=== PATIENT | female | born 1975 | race Caucasian/White ===

== ENCOUNTER 2018-06-30 05:19 | Inpatient (IN) ==
[2018-06-30] MEDS ORDERED: MethylPREDNISolone Sod Succinate Inj 125 MG/2 ML Vial IV.PUSH ONE (05:25)
--- NOTE | 2018-06-30 05:30 | ED ---
HPI General Chief complaint: Skin/Abscess/Foreign Body Stated complaint: EVAC/Poss insect bite to face Time Seen by Provider: 06/30/18 05:25 Source: EMS Mode of arrival: EMS Limitations: no limitations History of Present Illness HPI narrative: 43yo F with PMH of nonhodgkin's lymphoma, ex IVDA (have not use for 2 months) here with c/o right facial pain and swelling since yesterday. Said she had a bug bite yesterday and it was getting larger but she went to sleep and woke up and it got worst. Said she has fever at home. Said it is painful, not itchy. Said she has chest pain as well. Denies any sob, n/v, abdominal pain, focal weakness or numbness. Related Data Home Medications Medication Instructions Recorded Confirmed ibuprofen 800 mg PO DIRECTED 06/30/18 06/30/18 levetiracetam [Keppra] 1,000 mg PO BID 06/30/18 06/30/18 Allergies Allergy/AdvReac Type Severity Reaction Status Date / Time penicillin G Allergy Severe Anaphylaxis Verified 06/30/18 05:35 Review of Systems ROS: all other systems reviewed are negative [facility] Medical History Medical History Non-Hodgkin lymphoma (Acute) Seizure (Acute) Surgical History Surgical History H/O tubal ligation (Acute) Hx of cholecystectomy (Acute) Family History Family History Mother Breast cancer Social History Social History Substance History: Active Abuse Second Hand Smoke Exposure: Yes Smoking Status: Current every day smoker Tobacco Type: Cigarettes How Often Do You Have a Drink Containing Alcohol: Monthly or less Recent Travel in [facility] within the Last 8 Weeks: No Recent Out of Country Travel within the Last 8 Weeks: No Exam Narrative Exam Narrative: GENERAL: 43yo F in moderate distress. SKIN: Focused skin assessment warm/dry. HEAD: Atraumatic. Normocephalic. EYES: Periorbital edema right eye. Pupils 3mm equal bilaterally. EOMI. FACE: +Edema and erythema in right face. There is induration but no fluctuance palpated. ENT: Uvula midline. No trismus. NECK: Trachea midline. No JVD. CARDIOVASCULAR: Regular rate and rhythm. No murmur appreciated. RESPIRATORY: No accessory muscle use. Clear to auscultation. Breath sounds equal bilaterally. GASTROINTESTINAL: Abdomen soft, non-tender, nondistended. MUSCULOSKELETAL: No obvious deformities. No clubbing. No cyanosis. No edema. NEUROLOGICAL: Awake and alert. No obvious cranial nerve deficits. Motor grossly within normal limits. Normal speech. PSYCHIATRIC: Appropriate mood and affect; insight and judgment normal. Course Initial Documented Vital Signs Temperature 102.1 F H 06/30/18 05:23 Pulse Rate 100 H 06/30/18 05:23 Respiratory Rate 22 06/30/18 05:23 Blood Pressure 137/82 06/30/18 05:23 Pulse Oximetry 100 06/30/18 05:23 Last Documented Vital Signs Temperature 98.0 F 06/30/18 16:00 Pulse Rate 74 06/30/18 16:00 Respiratory Rate 22 06/30/18 16:00 Blood Pressure 102/76 06/30/18 16:00 Pulse Oximetry 100 06/30/18 16:00 Medical Decision Making MDM Narrative Medical decision making narrative: 43yo F with PMH of ex IVDA and nonhodgkins lymphoma here with extensive right facial swelling and pain after bug bite 2 days ago. Pt is febrile at 102.1F and tachycardic at 100bpm. Labs reviewed, WBC 11.5. Lactic acid normal at 1.2. CT facial showed extensive soft tissue swelling over the malar eminence on the right. No evidence of abscess. Pt also with atypical chest pain and troponin was negative. CXR negative. However , she is an ex IVDA with fever and chest pain so needs to r/o endocarditis as well. Blood cultures have been drawn, pt given NS IVF and vancomycin. Medical Screen Exam Complete: Yes Emergency Medical Condition: Yes Differential Diagnosis Differential Diagnosis: Cellulitis vs. abscess vs. allergic reaction Lab Data Result diagrams: 06/30/18 06:00 06/30/18 06:00 Lab Results 06/30/18 06/30/18 06/30/18 Range/Units 06:00 06:00 06:00 CBC w Diff Slide review pending WBC 11.5 H (4.0-11.0) th/mm3 RBC 4.55 (4.00-5.30) mil/mm3 Hgb 11.7 (11.6-15.3) gm/dL Hct 35.5 (35.0-46.0) % MCV 78.1 L (80.0-100.0) fL MCH 25.7 L (27.0-34.0) pg MCHC 32.9 (32.0-36.0) % RDW 14.2 (11.6-17.2) % Plt Count 324 (150-450) th/mm3 MPV 7.6 (7.0-11.0) fL WBC Differential Manual diff final Seg Neuts % (Manual) 72 H (16-70) % Lymphocytes % (Manual) 21 (9-44) % Monocytes % (Manual) 6 (0-8) % Basophils % (Manual) 1 (0-2) % Abs Neuts (Manual) 8.3 H (1.8-7.7) th/mm3 Differential Comment . Platelet Estimate Normal (Normal) Platelet Morphology Normal (Normal) Basophilic Stippling Faint H (None) Sodium 137 (136-145) meq/L Potassium 3.5 (3.5-5.1) meq/L Chloride 102 (98-107) meq/L Carbon Dioxide 27.2 (21.0-32.0) meq/L Anion Gap 8 (5-15) meq/L BUN 10 (7-18) mg/dL Creatinine 0.74 (0.50-1.00) mg/dL Estimated GFR 86 L (>89) mL/min Random Glucose 125 H (74-106) mg/dL Lactic Acid 1.2 (0.4-2.0) mmol/L Calcium 8.2 L (8.5-10.1) mg/dL Troponin I Less than 0.02 L (0.02-0.05) ng/mL Urine Color (Yellw/Straw) Urine Clarity (Clear) Urine pH (5.0-8.5) Ur Specific [place] (1.002-1.035) Urine Protein (Neg-Trace) mg/dL Urine Glucose (UA) (Negative) mg/dL Urine Ketones (Negative) mg/dL Urine Occult Blood (Negative) Urine Nitrate (Negative) Urine Bilirubin (Negative) Urine Urobilinogen (Less than 2) mg/dL Ur Leukocyte Esterase (Negative) Urine WBC (0-5) /hpf Ur Squamous Epith Cells (0-5) /hpf Urine Bacteria (None) /hpf Micro UA Comment Ur Microscopic Review Urine Culture Comments 06/30/18 Range/Units 14:40 CBC w Diff WBC (4.0-11.0) th/mm3 RBC (4.00-5.30) mil/mm3 Hgb (11.6-15.3) gm/dL Hct (35.0-46.0) % MCV (80.0-100.0) fL MCH (27.0-34.0) pg MCHC (32.0-36.0) % RDW (11.6-17.2) % Plt Count (150-450) th/mm3 MPV (7.0-11.0) fL WBC Differential Seg Neuts % (Manual) (16-70) % Lymphocytes % (Manual) (9-44) % Monocytes % (Manual) (0-8) % Basophils % (Manual) (0-2) % Abs Neuts (Manual) (1.8-7.7) th/mm3 Differential Comment Platelet Estimate (Normal) Platelet Morphology (Normal) Basophilic Stippling (None) Sodium (136-145) meq/L Potassium (3.5-5.1) meq/L Chloride (98-107) meq/L Carbon Dioxide (21.0-32.0) meq/L Anion Gap (5-15) meq/L BUN (7-18) mg/dL Creatinine (0.50-1.00) mg/dL Estimated GFR (>89) mL/min Random Glucose (74-106) mg/dL Lactic Acid (0.4-2.0) mmol/L Calcium (8.5-10.1) mg/dL Troponin I (0.02-0.05) ng/mL Urine Color Straw (Yellw/Straw) Urine Clarity Clear (Clear) Urine pH 6.0 (5.0-8.5) Ur Specific [place] Less/equal 1.005 (1.002-1.035) Urine Protein Negative (Neg-Trace) mg/dL Urine Glucose (UA) Negative (Negative) mg/dL Urine Ketones Negative (Negative) mg/dL Urine Occult Blood Negative (Negative) Urine Nitrate Negative (Negative) Urine Bilirubin Negative (Negative) Urine Urobilinogen 0.2 (Less than 2) mg/dL Ur Leukocyte Esterase Negative (Negative) Urine WBC 0-5 (0-5) /hpf Ur Squamous Epith Cells 0-5 (0-5) /hpf Urine Bacteria Few H (None) /hpf Micro UA Comment Culture not ind Ur Microscopic Review Microscopic reviewed Urine Culture Comments Culture not ind Imaging Data Radiologist's impression: Chest X-Ray 06/30/18 05:25 CONCLUSION: No acute cardiopulmonary disease. Face CT 06/30/18 05:37 CONCLUSION: 1. Preseptal and subcutaneous soft tissue swelling without evidence of abscess ECG Data EKG Prior to Arrival: No Attestation: I personally reviewed and interpreted this ECG as follows: Interpretation: NSR 80bpm. Normal axis. OH interval 80bpm. Mild ST depressions diffusely. Discharge Plan Discharge Disposition Patient Disposition: 30 Still Patient Discharge Details Diagnosis: Sepsis Physicians Team ED Provider: Tasha Simon Primary Care Provider: Primary Care Mili Chacon Attending Provider: Perico Morrison Discharge Interventions Interventions: ED Discharge Assessment Last Done: 06/30/18 09:41 Vital Signs Last Done: 06/30/18 09:13 Status ED Status: Left Department Discharge Information Discharge Date/Time: 06/30/18 09:42
[2018-06-30] MEDS ORDERED: Acetaminophen 325 MG Tablet PO ONE (05:38)
[2018-06-30] MEDS ORDERED: Sod Chloride 0.9% Inj 1,000 ML IV.SIG SCH (05:45)
[2018-06-30] MEDS ORDERED: Ketorolac Inj 30 MG/ML (IVP) Vial IV.PUSH ONE (05:46)
--- NOTE | 2018-06-30 06:08 | XR ---
EXAM DATE: 06/30/2018 5:25 AM EDT AGE/SEX: 43 years / Female INDICATIONS: Cough and chest pain. CLINICAL DATA: This is the patient's initial encounter. Patient reports that signs and symptoms have been present for 2 days and indicates a pain score of 5/10. MEDICAL/SURGICAL HISTORY: . Non hodgkin's lymphoma. None. COMPARISON: No prior exams available for comparison. FINDINGS: A single AP view of the chest demonstrates the lungs to be symmetrically aerated without evidence of mass, infiltrate or effusion. The cardiomediastinal contours are unremarkable. Osseous structures a re intact. CONCLUSION: No acute cardiopulmonary disease. Electronically signed by: Wally Newman MD 06/30/2018 6:06 AM EDT
[2018-06-30 06:34] LABS: Hematocrit 35.5 % (35.0-46.0); Hemoglobin 11.7 gm/dL (11.6-15.3); Mean Corpuscular HGB Conc 32.9 % (32.0-36.0); Mean Corpuscular Hemoglobin 25.7 pg (27.0-34.0); Mean Corpuscular Volume 78.1 fL (80.0-100.0); Mean Platelet Volume 7.6 fL (7.0-11.0); Platelet Count 324 th/mm3 (150-450); Red Blood Count 4.55 mil/mm3 (4.00-5.30); Red Cell Distribution Width 14.2 % (11.6-17.2); White Blood Count 11.5 th/mm3 (4.0-11.0)
[2018-06-30 06:36] LABS: Chloride 102 meq/L (98-107); Potassium 3.5 meq/L (3.5-5.1); Sodium 137 meq/L (136-145)
[2018-06-30 06:39] LABS: Calcium 8.2 mg/dL (8.5-10.1)
[2018-06-30 06:40] LABS: Anion Gap 8 meq/L (5-15); Blood Urea Nitrogen 10 mg/dL (7-18); Carbon Dioxide 27.2 meq/L (21.0-32.0); Glucose,Random 125 mg/dL (74-106)
[2018-06-30 06:43] LABS: Glomerular Filtration Rate 86 mL/min (>89)
--- NOTE | 2018-06-30 06:43 | CT ---
EXAM DATE: 06/30/2018 5:47 AM EDT AGE/SEX: 43 years / Female INDICATIONS: Right facial swelling and pain. Evaluate for abscess. CLINICAL DATA: This is the patient's initial encounter. Patient reports that signs and symptoms have been present for 2 days and indicates a pain score of 10/10. MEDICAL/SURGICAL HISTORY: Lymphoma. Seizures. None. RADIATION DOSE: 29.94 CTDI (mGy) COMPARISON: No prior exams available for comparison. TECHNIQUE: Contiguous images in the axial and coronal planes were obtained using helical multirow de tector technique with 100 ml Omnipaque 350 (iohexol) nonionic water-soluble contrast as a single exa m dose. Using automated exposure control and adjustment of the mA and/or kV according to patient siz e, radiation dose was kept as low as reasonably achievable to obtain optimal diagnostic quality image s. DICOM format image data is available electronically for review and comparison. FINDINGS: There is extensive soft tissue swelling over the malar eminence on the right. There is no evidence of abscess. . There is no involvement of the muscular compartment. The paranasal sinuses are clear. No bony erosion is identified. The soft tissue swelling is confined to the preseptal space. CONCLUSION: 1. Preseptal and subcutaneous soft tissue swelling without evidence of abscess Electronically signed by: Wally Newman MD 06/30/2018 6:41 AM EDT
[2018-06-30 06:54] LABS: Lymphocytes 21 % (9-44); Monocytes 6 % (0-8)
[2018-06-30 06:55] LABS: Platelet Estimate Normal (Normal); Platelet Morphology Normal (Normal)
[2018-06-30] MEDS ORDERED: Vancomycin Inj 1 GM/200 ML PIGGYBACK IV.SIG SCH (07:00)
[2018-06-30] MEDS ORDERED: Vancomycin Inj 1,000 MG in Sodium Chlor 0.9% Inj 250 ML IV.SIG SCH (08:00)
[2018-06-30] MEDS ORDERED: Acetaminophen 325 MG Tablet PO PRN (08:41)
[2018-06-30] MEDS: Sod Chloride 0.9% Inj 1,000 ML IV.CONT SCH ×2 (09:57→23:46)
--- NOTE | 2018-06-30 11:36 | P.HP ---
History of Present Illness Primary Care Physician: No Primary Care Physician Chief Complaint: Skin infection History of Present Illness: Is a 43-year-old female patient with a known medical history of non-Hodgkin's lymphoma, as well as history of IV drug use presented to the ED with complaints of right facial pain and swelling that started 2 days ago. Patient states that she awoke on Thursday morning, states that on her right cheek she noticed a possible bug bite, she states over the past couple days she noticed the swelling getting worse as well as worsening pain. She attempted to take ibuprofen without any relief of the pain. She does admit to fevers at home of up to 103. She admits to chills as well. Denies any chest pain, headache, dumping, nausea, vomiting, diarrhea or dysuria. Patient does have a history of epilepsy and takes Keppra, has not had a seizure in years per her report. She also does have a history of IV drug abuse, states that she has been clean for roughly 6 weeks now. Her drug of choice is IV heroin, she attended [facility] she has been doing very well. She has never had an echocardiogram of her heart, we should rule this out for endocarditis with presentation of sepsis. Patient does have a history of tobacco abuse. Denies any alcohol. Does not have a primary care physician. Denies any recent antibiotic use. - Diagnosis (1) Skin infection (2) Sepsis Inpatient Certification: I certify that the inpatient services were ordered in accordance with Medicare regulations governing the order. This includes certification that hospital inpatient services are reasonable and necessary and in the case of services not specified as inpatient-only under 42 CFR 419.22(n), that they are appropriately provided as inpatient services in accordance to with the 2-midnight benchmark under 43 CFR 412.3(e) Estimated Total Length of Stay (Days): 3 Review of Systems All other systems reviewed negative except as stated in HPI PMFSH - History History Provided By: Patient - Medical History Medical History: Medical History (Last Reviewed 06/30/18 @ 12:10 by Janice Gracia) Non-Hodgkin lymphoma Seizure - Surgical History Surgical History: Surgical History (Last Updated 06/30/18 @ 12:34 by Janice Gracia) H/O tubal ligation Hx of cholecystectomy - Family History Family History: Family History (Last Updated 06/30/18 @ 12:34 by Janice Gracia) Mother Breast cancer - Social History I have reviewed the patient's Social History: Yes - Tobacco History Second Hand Smoke Exposure: Yes Tobacco Use In Past 30 Days: Yes Smoking Status: Current every day smoker Tobacco Type: Cigarettes - Alcohol History How Often Do You Have a Drink Containing Alcohol: Monthly or less - Substance Use History Substance History: Active Abuse - Travel History Recent Travel in the [place] Within the Last 8 Weeks: No Recent Travel Out of the Country Within the Last 8 Weeks: No - Immunization History Tetanus Immunization: <5 Years Medications and Allergies Active Medications: Active Medications Acetaminophen (Tylenol) 650 mg PO Q4H PRN PRN Reason: fever/pain 1-10 Sodium Chloride (Ns Inj) 1,000 mls @ 100 mls/hr IV.CONT .Q10H ASH Last Admin: 06/30/18 09:57 Dose: 100 mls/hr Allergies Allergy/AdvReac Type Severity Reaction Status Date / Time penicillin G Allergy Severe Anaphylaxis Verified 06/30/18 05:35 Home Medications Medication Instructions Recorded Confirmed Type ibuprofen 800 mg PO DIRECTED 06/30/18 06/30/18 History levetiracetam [Keppra] 1,000 mg PO BID 06/30/18 06/30/18 History Exam Vital signs: Vital Signs 06/30/18 05:23 06/30/18 05:44 06/30/18 09:13 Temperature 102.1 F H 102.1 F H 98.4 F Pulse Rate 100 H 77 Respiratory Rate 22 16 Blood Pressure 137/82 90/52 L Pulse Oximetry 100 06/30/18 10:00 Temperature 98.1 F Pulse Rate 66 Respiratory Rate 22 Blood Pressure 86/58 L Pulse Oximetry 100 Intake & Output 06/29/18 06/30/18 06/30/18 18:59 06:59 18:59 Intake Total 1250 / 1250 Balance 1250 / 1250 Weight 50 kg 50.802 kg Intake: IV 1250 / 1250 NS Inj 1,000 ML @ Wide Open IV. 1000 / 1000 SIG BOLUS ASH Rx#:[id number] Vancomycin Inj 1,000 MG In NS 250 / 250 Inj 250 ML @ 250 mls/hr IV.SIG ONCE ASH Rx#:[id number] Other: Weight On Admission 50.802 kg Narrative: GENERAL: Well-developed, well-nourished patient in NAD. SKIN: Warm and dry. No rash. Significant right cheek swelling with erythema, no induration. No airway compromise HEAD: Normocephalic. Atraumatic. EYES: Pupils equal and round. No scleral icterus. No injection or drainage. ENT: No nasal bleeding or discharge. Mucous membranes pink and moist. NECK: Supple. Trachea midline. CARDIOVASCULAR: Regular rate and rhythm. S1, S2 noted. No murmur appreciated. RESPIRATORY: No accessory muscle use. Clear to auscultation. Breath sounds equal bilaterally. GASTROINTESTINAL: Abdomen soft, non-tender, nondistended. Normoactive bowel sounds x4. MUSCULOSKELETAL: No obvious deformities. Extremities without clubbing, cyanosis , or edema. NEUROLOGICAL: Awake and alert. No obvious cranial nerve deficits. Motor grossly within normal limits. 5/5 muscle strength in bilateral upper and lower extremities. Normal speech. PSYCHIATRIC: Appropriate mood and affect; insight and judgment normal. Results - Labs CBC & Chem 7: 06/30/18 06:00 06/30/18 06:00 Labs: Laboratory Results - last 24 hr 06/30/18 06/30/18 06/30/18 06:00 06:00 06:00 CBC w Diff Slide review pending WBC 11.5 H RBC 4.55 Hgb 11.7 Hct 35.5 MCV 78.1 L MCH 25.7 L MCHC 32.9 RDW 14.2 Plt Count 324 MPV 7.6 WBC Differential Manual diff final Seg Neuts % (Manual) 72 H Lymphocytes % (Manual) 21 Monocytes % (Manual) 6 Basophils % (Manual) 1 Abs Neuts (Manual) 8.3 H Differential Comment . Platelet Estimate Normal Platelet Morphology Normal Basophilic Stippling Faint H Sodium 137 Potassium 3.5 Chloride 102 Carbon Dioxide 27.2 Anion Gap 8 BUN 10 Creatinine 0.74 Estimated GFR 86 L Random Glucose 125 H Lactic Acid 1.2 Calcium 8.2 L Troponin I Less than 0.02 L - Imaging Impressions Chest X-Ray 06/30/18 05:25 CONCLUSION: No acute cardiopulmonary disease. Face CT 06/30/18 05:37 CONCLUSION: 1. Preseptal and subcutaneous soft tissue swelling without evidence of abscess Caprini VTE Risk Assessment Caprini VTE Risk Assessment: No/Low Risk (score <= 1) Caprini Risk Assessment Model: Point Value = 1 Point Value = 2 Point Value = 3 Point Value = 5 Age 41-60 Minor surgery BMI > 25 kg/m2 Swollen legs Varicose veins or History of unexplained or recurrent spontaneous Oral contraceptives or hormone replacement Sepsis (< 1 month) Serious lung disease, including pneumonia (< 1 month) Abnormal pulmonary function Acute myocardial infarction Congestive heart failure (< 1 month) History of inflammatory bowel disease Medical patient at bed rest Age 61-74 Arthroscopic surgery Major open surgery (> 45 min) Laparoscopic surgery (> 45 min) Malignancy Confined to bed (> 72 hours) Immobilizing plaster cast Central venous access Age >= 75 History of VTE Family history of VTE Factor V Leiden Prothrombin [id number] Lupus anticoagulant Anticardiolipin antibodies Elevated serum homocysteine Heparin-induced thrombocytopenia Other congenital or acquired thrombophilia Stroke (< 1 month) Elective arthroplasty Hip, pelvis, or leg fracture Acute spinal cord injury (< 1 month) Prophylaxis Regimen: Total Risk Factor Score Risk Level Prophylaxis Regimen 0-1 Low Early ambulation 2 Moderate Order ONE of the following: *Sequential Compression Device (SCD) *Heparin 5000 units SQ BID 3-4 Higher Order ONE of the following medications: *Heparin 5000 units SQ TID *Enoxaparin/Lovenox 40 mg SQ daily (WT < 150 kg, CrCl > 30 mL/min) *Enoxaparin/Lovenox 30 mg SQ daily (WT < 150 kg, CrCl > 10-29 mL/min) *Enoxaparin/Lovenox 30 mg SQ BID (WT < 150 kg, CrCl > 30 mL/min) AND/OR *Sequential Compression Device (SCD) 5 or more Highest Order ONE of the following medications: *Heparin 5000 units SQ TID (Preferred with Epidurals) *Enoxaparin/Lovenox 40 mg SQ daily (WT < 150 kg, CrCl > 30 mL/min) *Enoxaparin/Lovenox 30 mg SQ daily (WT < 150 kg, CrCl > 10-29 mL/min) *Enoxaparin/Lovenox 30 mg SQ BID (WT < 150 kg, CrCl > 30 mL/min) AND *Sequential Compression Device (SCD) Assessment and Plan - Assessment (1) Skin infection Code(s): L08.9 - Local infection of the skin and subcutaneous tissue, unspecified Status: Acute (2) Sepsis Code(s): A41.9 - Sepsis, unspecified organism Status: Acute - Plan This is a 43-year-old female patient with: Sepsis secondary to right facial skin infection -Patient meets sepsis criteria with leukocytosis white blood cell 11.5, fever of 102.1, tachycardia with suspected source right facial skin infection. Lactic acid normal. -A facial CT has been done and reviewed showing preseptal and subcutaneous soft tissue swelling without evidence of abscess. -Patient was given vancomycin IV as well as IV steroids in ED. Will start on vancomycin IV scheduled with pharmacy consult. Monitor kidney function. -Blood cultures ordered and pending. UA also ordered. Will continue IV fluid, ensure hydration. -Chest x-ray reviewed and negative with no acute cardiopulmonary disease. -Will add IV Decadron. Continue to monitor swelling. Monitor for airway compromise. Patient is breathing comfortably on room air. -Pain control with IV Toradol as needed. Supportive care. History of IV drug use, states that she has not used in over 2 months. -With presentation of sepsis, patient should be ruled out for any possibility of endocarditis. -Echocardiogram has been ordered and pending. Will follow results. -Continue treatment plan for sepsis as above. History of epilepsy: Continue home Keppra. DVT prophylaxis: SCDs. Evaluation.
[2018-06-30] MEDS ORDERED: Sod Chloride 0.9% Inj 1,000 ML IV.SIG ONE (12:15)
[2018-06-30] MEDS: Ketorolac Inj 30 MG/ML (IVP) Vial IV.PUSH PRN ×2 (13:05→20:38)
--- NOTE | 2018-06-30 14:06 | ECG ---
Date Performed: 06/30/2018 Time Performed: 06:23:08 PTAGE: 43 years EKG: Sinus rhythm POSSIBLE LEFT ATRIAL ENLARGEMENT PREVIOUS TRACING : 10/21/2015 16.25 No signifcant change DOCTOR: Yousuf Quezada M.D. Interpretating Date/Time 06/30/2018 14:04:44
[2018-06-30 15:16] LABS: Bilirubin,Urine Negative (Negative); Clarity,Urine Clear (Clear); Glucose,Urine (UA) Negative (Negative); Leukocyte Esterase,Urine Negative (Negative); Nitrite,Urine Negative (Negative); Specific Gravity,Urine Less/Equal 1.005 (1.002-1.035); Urobilinogen,Urine 0.2 mg/dL (Less than 2)
[2018-06-30 15:24] LABS: Color,Urine Straw (Yellw/Straw)
[2018-06-30 16:03] LABS: Squamous Epithelial Cell,Urine 0-5 /hpf (0-5); WBC,Urine 0-5 /hpf (0-5)
[2018-06-30 16:04] LABS: Bacteria,Urine Few /hpf
[2018-07-01 00:26] VITALS: RESP 20; O2SAT 99
[2018-07-01] MEDS: Ketorolac Inj 30 MG/ML (IVP) Vial IV.PUSH PRN ×3 (01:55→12:43)
[2018-07-01] MEDS: Sod Chloride 0.9% Inj 1,000 ML IV.CONT SCH (05:06)
[2018-07-01 06:36] LABS: Baso # (Auto) 0.1 th/mm3 (0.0-0.2); Baso % (Auto) 0.8 % (0.0-2.0); Eos % (Auto) 0.1 % (0.0-4.0); Hematocrit 34.2 % (35.0-46.0); Lymph # (Auto) 0.8 th/mm3 (1.0-4.8); Lymph % (Auto) 5.3 % (9.0-44.0); Mean Corpuscular HGB Conc 32.1 % (32.0-36.0); Mean Corpuscular Volume 80.9 fL (80.0-100.0); Mean Platelet Volume 8.1 fL (7.0-11.0); Mono # (Auto) 0.2 th/mm3 (0.0-0.9); Neut % (Auto) 92.8 % (16.0-70.0); Platelet Count 242 th/mm3 (150-450); Red Blood Count 4.23 mil/mm3 (4.00-5.30); Red Cell Distribution Width 13.7 % (11.6-17.2); White Blood Count 15.1 th/mm3 (4.0-11.0)
--- NOTE | 2018-07-01 08:13 | P.PNIM ---
Subjective Interval history: Follow up facial cellulitis. Patient lying in bed comfortably, nad. Swelling much improved this morning. Pain is more controlled. Patient will benefit from one more dose of IV steroids and IV antibiotics and possibly DC home later this afternoon. No acute complaints. Physical Exam Vital signs: Vital Signs 06/30/18 09:13 06/30/18 10:00 06/30/18 16:00 Temperature 98.4 F 98.1 F 98.0 F Pulse Rate 77 66 74 Respiratory Rate 16 22 22 Blood Pressure 90/52 L 86/58 L 102/76 Pulse Oximetry 100 100 06/30/18 20:00 06/30/18 23:44 07/01/18 00:00 Temperature 98.0 F 97.5 F L Pulse Rate 65 72 Respiratory Rate 20 18 20 Blood Pressure 133/73 130/73 Pulse Oximetry 98 99 Intake & Output 06/30/18 07/01/18 07/01/18 18:59 06:59 18:59 Intake Total 2250 / 2250 2460 / 2460 Output Total 1200 / 1200 Balance 1050 / 1050 2460 / 2460 Weight 50.802 kg 50.2 kg Intake: IV 2250 / 2250 1500 / 1500 NS Inj 1,000 ML @ 100 mls/hr IV 1500 / 1500 .CONT .Q10H ASH Rx#:[id number] NS Inj 1,000 ML @ Wide Open IV. 1000 / 1000 SIG BOLUS ASH Rx#:[id number] Vancomycin Inj 1,000 MG In NS 250 / 250 Inj 250 ML @ 250 mls/hr IV.SIG ONCE ASH Rx#:[id number] Oral 960 / 960 Output: Urine 1200 / 1200 Other: # Voids 3 Date of Last Bowel Movement 06/29/18 Weight On Admission 50.802 kg Narrative: GENERAL: Well-developed, well-nourished patient in [facility]. SKIN: Warm and dry. No rash. Improving right cheek swelling with erythema, no induration. No airway compromise HEAD: Normocephalic. Atraumatic. EYES: Pupils equal and round. No scleral icterus. No injection or drainage. ENT: No nasal bleeding or discharge. Mucous membranes pink and moist. NECK: Supple. Trachea midline. CARDIOVASCULAR: Regular rate and rhythm. S1, S2 noted. No murmur appreciated. RESPIRATORY: No accessory muscle use. Clear to auscultation. Breath sounds equal bilaterally. GASTROINTESTINAL: Abdomen soft, non-tender, nondistended. Normoactive bowel sounds x4. MUSCULOSKELETAL: No obvious deformities. Extremities without clubbing, cyanosis , or edema. NEUROLOGICAL: Awake and alert. No obvious cranial nerve deficits. Motor grossly within normal limits. 5/5 muscle strength in bilateral upper and lower extremities. Normal speech. PSYCHIATRIC: Appropriate mood and affect; insight and judgment normal. Results - Labs CBC & Chem 7: 07/01/18 05:10 06/30/18 06:00 Laboratory Results - last 24 hr 06/30/18 07/01/18 14:40 05:10 CBC w Diff Auto diff final WBC 15.1 H RBC 4.23 Hgb 11.0 L Hct 34.2 L MCV 80.9 MCH 26.0 L MCHC 32.1 RDW 13.7 Plt Count 242 MPV 8.1 Neut % (Auto) 92.8 H Lymph % (Auto) 5.3 L [place] % (Auto) 1.0 Eos % (Auto) 0.1 Baso % (Auto) 0.8 Neut # (Auto) 14.0 H Lymph # (Auto) 0.8 L [place] # (Auto) 0.2 Eos # (Auto) 0.0 Baso # (Auto) 0.1 WBC Differential . Differential Comment . Urine Color Straw Urine Clarity Clear Urine pH 6.0 Ur Specific [place] Less/equal 1.005 Urine Protein Negative Urine Glucose (UA) Negative Urine Ketones Negative Urine Occult Blood Negative Urine Nitrate Negative Urine Bilirubin Negative Urine Urobilinogen 0.2 Ur Leukocyte Esterase Negative Urine WBC 0-5 Ur Squamous Epith Cells 0-5 Urine Bacteria Few H Micro UA Comment Culture not ind Ur Microscopic Review Microscopic reviewed Urine Culture Comments Culture not ind Assessment and Plan - Assessment (1) Skin infection Code(s): L08.9 - Local infection of the skin and subcutaneous tissue, unspecified Status: Acute (2) Sepsis Code(s): A41.9 - Sepsis, unspecified organism Status: Acute - Plan This is a 43-year-old female patient with: Sepsis secondary to right facial skin infection -Patient met sepsis criteria with leukocytosis white blood cell 11.5, fever of 102.1, tachycardia with suspected source right facial skin infection. Lactic acid normal. Improving. -A facial CT has been done and reviewed showing preseptal and subcutaneous soft tissue swelling without evidence of abscess. Improving. -Patient was given vancomycin IV as well as IV steroids in ED. Continued on vancomycin IV scheduled with pharmacy consult. Monitor kidney function. Stable. -Blood cultures pending. UA negative. -Chest x-ray reviewed and negative with no acute cardiopulmonary disease. -Continue IV Decadron. Continue to monitor swelling. Monitor for airway compromise. Patient is breathing comfortably on room air. -Pain control with IV Toradol as needed. Supportive care. History of IV drug use, states that she has not used in over 2 months. -With presentation of sepsis, patient should be ruled out for any possibility of endocarditis. -Echocardiogram has been ordered and pending. Will follow results. -Continue treatment plan for sepsis as above. History of epilepsy: Continue home Keppra. DVT prophylaxis: SCDs. Evaluation. Discharge Planning: Anticipate DC later today after one more dose of IV abx and IV decadron. Also awaiting ECHO. (2) Sepsis Qualifiers: Sepsis type: sepsis due to unspecified organism Qualified Code(s): A41.9 - Sepsis, unspecified organism
[2018-07-01 08:50] VITALS: BP 130/77; PULSE 75; TEMP 97.7
[2018-07-01] MEDS ORDERED: Vancomycin Inj 1,000 MG in Sodium Chlor 0.9% Inj 250 ML IV.SIG SCH (10:00)
[2018-07-01] MEDS ORDERED: Influenza (Quadrivalent) Vaccine 0.5 ML Syringe IM ONE (11:00)
--- NOTE | 2018-07-01 12:20 | ECHRPT ---
Indication: Sepsis Possible Endocarditis CONCLUSIONS Normal left ventricular size. Wall thickness is measured at the upper limits of normal. The left ventricular systolic function is normal with an estimated ejection fraction in the range of 60-65%. Normal wall motion. There is trace tricuspid valve regurgitation. The estimated pulmonary arterial pressure is 30 mmHg. BP: / HR: Rhythm: MEASUREMENTS (Male / Female) Normal Values Technical Quality:Fair 2D ECHO LV Diastolic Diameter PLAX 4.0 cm 4.2 - 5.9 / 3.9 - 5.3 cm LV Systolic Diameter PLAX 2.3 cm IVS Diastolic Thickness 0.9 cm 0.6 - 1.0 / 0.6 - 0.9 cm LVPW Diastolic Thickness 1.0 cm 0.6 - 1.0 / 0.6 - 0.9 cm LV Relative Wall Thickness 0.5 RV Internal Dim ED PLAX 2.6 cm LVOT Diameter 2.0 cm Aortic Root Diameter 2.7 cm LA Systolic Diameter LX 3.4 cm 3.0 - 4.0 / 2.7 - 3.8 cm DOPPLER AV Peak Velocity 153.0 cm/s AV Peak Gradient 9.4 mmHg LVOT Peak Velocity 109.0 cm/s LVOT Peak Gradient 4.8 mmHg AV Area Cont Eq pk 2.2 cm Mitral E Point Velocity 130.0 cm/s Mitral A Point Velocity 87.6 cm/s Mitral E to A Ratio 1.5 LV E' Lateral Velocity 16.8 cm/s Mitral E to LV E' Lateral Ratio 7.7 LV E' Septal Velocity 11.7 cm/s Mitral E to LV E' Septal Ratio 11.1 TR Peak Velocity 225.0 cm/s TR Peak Gradient 20.3 mmHg Right Atrial Pressure 10.0 mmHg Pulmonary Artery Systolic Pressu 30.3 mmHg Right Ventricular Systolic Press 30.3 mmHg PV Peak Velocity 97.7 cm/s PV Peak Gradient 3.8 mmHg FINDINGS LEFT VENTRICLE Normal left ventricular size. Wall thickness is measured at the upper limits of normal. The left ventricular systolic function is normal with an estimated ejection fraction in the range of 60-65%. Normal wall motion. RIGHT VENTRICLE Normal right ventricular size and systolic function. LEFT ATRIUM The left atrial size is normal. RIGHT ATRIUM The right atrial size is normal. ATRIAL SEPTUM Normal atrial septal thickness without atrial level shunting by limited color doppler interrogation. AORTA The aortic root and proximal ascending aorta are normal in size on limited imaging. MITRAL VALVE Trace mitral valve regurgitation. AORTIC VALVE Trileaflet aortic valve. TRICUSPID VALVE There is trace tricuspid valve regurgitation. The estimated pulmonary arterial pressure is 30 mmHg. PULMONARY VALVE No pulmonary valve regurgitation or stenosis. VESSELS Dilated inferior vena cava with poor inspiration collapse. PERICARDIUM No pericardial effusion. Rickie East MD (Electronically Signed) Final Date:01 July 2018 12:20
== END 2018-07-01 13:05 | disposition home or self-care (01) ==
LOC: PHED 05:19 → PHEDA 08:36 → PH3 09:41
PROVIDERS: ADMIT Internal Medicine; ATTEND Internal Medicine